=== PATIENT | male | born 1980 | race American Indian/Alaskan Native ===

== ENCOUNTER 2022-01-21 19:35 | Emergency (ER) | payer SELFPAY ==
[2022-01-21 19:56] VITALS: BP 111/58
[2022-01-22 00:10] LABS: Bilirubin,Urine NEG (Negative); Blood,Urine NEG (Negative); Calcium Oxalate Crystals,Urine 1+; Color,Urine Yellow (Yellow); Mucus,Urine 3+ /HPF; Protein,Urine <15 mg/dL mg/dL (Negative)
--- NOTE | 2022-01-22 01:52 | Emergency Department Report ---
ED Male HPI - General Chief complaint: Urogenital-Male Stated complaint: GROIN PAIN Source: patient Mode of arrival: Ambulatory Limitations: No Limitations - History of Present Illness Initial comments: Patient is a 41-year-old -[place] male with no past medical history who presents to the ED with complaint of acute onset penile irritation characterized by dry scaly rashes on the penile shaft for the last 1 week. Patient denies penile discharge, dysuria, urinary frequency and urgency, testicular pain, abdominal pain, low back pain, inguinal pain, fever and chills, nausea and vomiting Or hematuria. MD Complaint: other (Penile irritation) -: Sudden, week(s) (1) Location: penis Radiation: none Severity: moderate Severity scale (0 -10): 3 Quality: aching, dull Consistency: constant Improves with: none Worsens with: sexual intercourse new sexual partner denies other symptoms, rash. denies: discharge, swelling, mass, urinary retention, blood in urine, dysuria, fever, nausea/vomiting, incontinence - Related Data Sexually active: Yes Previous Rx's Medication Instructions Recorded Last Taken Type DOXYCYCLINE Hyclate [Vibramycin 100 mg PO Q12HR #28 capsule 01/22/22 Unknown Rx CAP] Nystatin Oint [Mycostatin Oint] 1 applicatio TP TID #1 tube 01/22/22 Unknown Rx Allergies Allergy/AdvReac Type Severity Reaction Status Date / Time No Known Allergies Allergy Unverified 01/21/22 20:05 ED Review of Systems ROS: Stated complaint: GROIN PAIN Other details as noted in HPI Constitutional: denies: chills, fever Eyes: denies: eye pain, eye discharge, vision change ENT: denies: ear pain, throat pain Respiratory: denies: cough, shortness of breath, wheezing Cardiovascular: denies: chest pain, palpitations Endocrine: no symptoms reported Gastrointestinal: denies: abdominal pain, nausea, diarrhea Genitourinary: denies: urgency, dysuria Musculoskeletal: denies: back pain, joint swelling, arthralgia Skin: rash (mild dry scaly rashes on penile shaft), change in color, pruritus. denies: lesions Neurological: denies: headache, weakness, paresthesias Psychiatric: denies: anxiety, depression Hematological/Lymphatic: denies: easy bleeding, easy bruising ED Past Medical Hx - Medications Home Medications: Home Medications Medication Instructions Recorded Confirmed Last Taken Type DOXYCYCLINE Hyclate [Vibramycin 100 mg PO Q12HR #28 capsule 01/22/22 Unknown Rx CAP] Nystatin Oint [Mycostatin Oint] 1 applicatio TP TID #1 tube 01/22/22 Unknown Rx ED Physical Exam - General Limitations: No Limitations General appearance: alert, in no apparent distress - Head Head exam: Present: atraumatic, normocephalic, normal inspection - Eye Eye exam: Present: normal appearance, PERRL, EOMI Pupils: Present: normal accommodation - ENT ENT exam: Present: normal exam, normal orophraynx, mucous membranes moist, TM's normal bilaterally, normal external ear exam - Neck Neck exam: Present: normal inspection, full ROM. Absent: tenderness - Respiratory Respiratory exam: Present: normal lung sounds bilaterally. Absent: respiratory distress, wheezes, rales, rhonchi, chest wall tenderness, accessory muscle use, decreased breath sounds, prolonged expiratory - Cardiovascular Cardiovascular Exam: Present: regular rate, normal rhythm, normal heart sounds. Absent: systolic murmur, diastolic murmur, rubs, gallop - GI/Abdominal GI/Abdominal exam: Present: soft, normal bowel sounds. Absent: tenderness, guarding, rebound, hyperactive bowel sounds, hypoactive bowel sounds - Extremities Exam Extremities exam: Present: normal inspection, full ROM, normal capillary refill. Absent: tenderness, pedal edema, joint swelling, calf tenderness - Back Exam Back exam: Present: normal inspection, full ROM. Absent: tenderness, CVA tenderness (R), CVA tenderness (L), muscle spasm, paraspinal tenderness - Neurological Exam Neurological exam: Present: alert, oriented X3, CN II-XII intact, normal gait, reflexes normal - Psychiatric Psychiatric exam: Present: normal affect, normal mood - Skin Skin exam: Present: warm, dry, intact, normal color. Absent: rash ED Course Vital Signs 01/21/22 19:54 Temperature 97.9 F Pulse Rate 68 Respiratory 18 Rate Blood Pressure 111/58 O2 Sat by Pulse 100 Oximetry ED Medical Decision Making - Medical Decision Making This is a 41-year-old -[place] male with no past medical history who presents to the ED with complaint of acute onset penile irritation characterized by dry scaly rashes on the penile shaft for the last 1 week. In the ED, patient is alert and oriented x3 and is not in any distress. Patient was discharged home on medications and advised to follow-up with his primary care physician in 7 to 10 days for reevaluation. Patient advised return to the ED immediately if symptoms get worse. - Differential Diagnosis Penile Candidiasis; penile balanitis Critical care attestation.: If time is entered above; I have spent that time in minutes in the direct care of this critically ill patient, excluding procedure time. 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 Ensure that you follow-up with the [facility] panel for further STD testing including HIV and syphilis. Prescriptions: Nystatin Oint [Mycostatin Oint] 1 applicatio TP TID #1 tube DOXYCYCLINE Hyclate [Vibramycin CAP] 100 mg PO Q12HR #28 capsule Referrals: JESUS CASTRO MD [Primary Care Provider] - 3-5 Days Forms: STI Treatment and Prevention Time of Disposition: 01:50 Print Language: ERITREAN
== END 2022-01-22 02:03 | disposition home or self-care (01) ==
LOC: ED 19:35
DX: B37.49 Other urogenital candidiasis (principal); N34.1 Nonspecific urethritis
CPT/HCPCS: 81001; 99283